=== PATIENT | female | born 1950 | race Caucasian/White ===

== ENCOUNTER 2024-04-20 22:27 | Emergency (ER) | payer MEDICARE, SELFPAY ==
[2024-04-20 22:34] VITALS: BP 103/66
[2024-04-20 22:54] LABS: % Basophils 0.6 % (0-2); % Eosinophils 2.5 % (0-6); % Immature Granulocytes 0.3 % (0-0.5); % Neutrophils 58.6 % (42.2-75.2); Absolute Basophils 0.1 10^3/uL (0-0.2); Absolute Eosinophils 0.2 10^3/uL (0-0.7); Absolute Lymphocytes 2.4 10^3/uL (1.2-3.4); Absolute Monocytes 0.5 10^3/uL (0.1-0.6); Absolute Neutrophils 4.5 10^3/uL (1.4-6.5); Hematocrit 39.1 % (37.0-47.0); Hemoglobin 12.9 g/dL (12.0-16.0); Mean Corpuscular Hgb 30.4 pg (27.0-31.0); Mean Platelet Volume 8.9 fL (7.4-10.4); Nucleated Red Blood Cells % 0 %; Platelet Count 298 10^3/uL (130-400); Red Blood Cell Count 4.25 10^6/uL (4.20-5.40); Red Cell Dist. Width 12.7 % (11.5-14.5); White Blood Cell Count 7.7 10^3/uL (4.8-10.8)
[2024-04-20 23:19] LABS: Troponin I < 0.012 ng/ml
[2024-04-20 23:24] LABS: ALT (SGPT) 18 U/L (0-35); AST (SGOT) 21 U/L (14-36); Albumin 4.1 g/dl (3.5-5.0); Alkaline Phosphatase 75 U/L (38-126); Blood Urea Nitrogen 33 mg/dl (7-17); Calcium 9.7 mg/dl (8.4-10.2); Carbon Dioxide 23 mmol/L (22-30); Chloride 107 mmol/L (98-107); Glucose 104 mg/dl (70-99); Potassium 4.7 mmol/L (3.5-5.1); Sodium 138 mmol/L (135-145); Total Bilirubin 0.3 mg/dl (0.2-1.3); Total Protein 6.7 g/dl (6.3-8.2); eGFR 59.86
--- NOTE | 2024-04-21 01:06 | ED.GENMED ---
History of Present Illness
General
Chief Complaint: Chest Pain
Time Seen by Provider: 04/21/24 01:05
Travel History
Have you had any contact with someone who has COVID-19?: No
Do you have any symptoms of coronavirus? Fever > 100 degrees, chills, cough, shortness of breath, sore throat, loss of taste or smell, muscle aches, or headache?: No
History of Present Illness
History of Present Illness:
HPI: Patient presents with chest discomfort and shortness of breath over the past 2 weeks. This feels similar to the time that she had SCAD last year. She forgot to take her aspirin this past month. She called Dr. Brannon's office who encouraged
her to come in here for further evaluation.
EXAM:
GENERAL: Well appearing in no distress, although she describes chest discomfort and shortness of breath she appears very comfortable in no distress
HEENT: Moist oral mucosa
CARDIOVASCULAR: No murmurs, normal heart rate, regular rhythm, No chest wall tenderness
PULMONARY: No respiratory distress, breath sounds are clear and equal
ABDOMEN: Soft with no peritoneal signs, no tenderness
NEUROLOGIC: Excellent strength all extremities, no coordination deficits
PSYCHIATRIC: Appropriate mental status, normal insight and judgement
EXTREMITIES: Nontender, trace if any lower extremity edema, moves all extremities equally
SKIN: No rash, no lesions
TIME OF INITIAL ENCOUNTER: 12:30 AM
NUMBER AND COMPLEXITY OF PROBLEMS ADDRESSED AT THE ENCOUNTER
� Chronic conditions affecting care: COPD, CAD, high blood pressure, hyperlipidemia, scad, prediabetes
� Acute Exacerbation and/or Progression of Chronic Illness: This is an acute problem but had similar discomfort in the past
� Differential Diagnosis includes: Noncardiac chest pain, non-STEMI, STEMI is ruled out,
AMOUNT AND/OR COMPLEXITY OF DATA TO BE REVIEWED AND ANALYZED
� I performed an independent evaluation of and my interpretation is:
EKG: Sinus 85, normal axis, no acute ST abnormality
CT:
X-rays: Chest x-ray negative
Laboratory Studies: CBC normal, chemistries unremarkable, troponin less than 0.012
Other:
� Review of other/old records: I reviewed records, the patient was here with a non-STEMI in March of last year�scad managed medically/single antiplatelet therapy (aspirin)
� Clinical information was obtained by an independent historian: None needed
� Prescriptions/Medications Considered but not given:
� Further testing considered but not performed:
RISK OF COMPLICATIONS AND/OR MORBIDITY OR MORTALITY OF PATIENT MANAGEMENT
� Social determinants of health affecting care: Lives at home
� Discussion with other providers: Notified Dr. Silveira. He recommends repeat troponin and outpatient management if negative.
� Escalation of care including admission/observation vs risk of discharge considered: The patient has not been taking her antiplatelet medication for the past month. Although patient describes her anginal equivalent, symptoms
have been ongoing for 2 weeks and not worsening. Troponin unremarkable. Second troponin also unchanged. Close outpatient follow-up with [facility].
Past History
Past History
ED Past Medical History: Hypercholesterolemia and NIDDM
ED Past Surgical History: None
Social History
Tobacco: Smoker
Alcohol: None
Living: with family
Family History
Family History: Early CAD
Phy Exam
Physical Exam
Physical Exam:
See HPI
Scores
Heart Score for Chest Pain Patients
STEMI patient?: Not applicable
Course
Orders/Labs/Results
Orders:
Orders
04/20/24 22:29
EKG [Electrocardiogram (*1)] Urgent
Reason for Study: Chest Pain
EKG- Treatment ONCE
04/20/24 22:45
CBC/With Diff [Complete Blood Count/With Diff] Urgent
CMP [Comprehensive Metabolic Panel] Urgent
Troponin I Urgent
04/21/24 00:00
CR Chest - 2 Views Urgent
Reason For Exam: chest pain
04/21/24 01:54
Troponin I Urgent
Abnormal Lab Results
04/20/24
22:45
BUN 33 H mg/dl
(7-17)
Glucose 104 H mg/dl
(70-99)
04/20/24 22:45
04/20/24 22:45
Vital Signs
Initial and Last Documented VS:
Initial Vital Signs
Temp Pulse Resp BP Pulse Ox
97.8 F 91 18 103/66 96
04/20/24 22:34 04/20/24 22:34 04/20/24 22:34 04/20/24 22:34 04/20/24 22:34
Last Documented Vital Signs
Temp Pulse Resp BP Pulse Ox
97.8 F 91 18 103/66 96
04/20/24 22:34 04/20/24 22:34 04/20/24 22:34 04/20/24 22:34 04/20/24 22:34
*Critical Care Note
Total Time (30-74mins, 75-104mins- exclusive of procedures): Not Applicable
ED Attending Note
-
Portions of this chart may have been created with voice recognition software.� Occasional wrong word or��sound alike� substitutions may have occurred due to the inherent limitations of voice recognition software.
Discharge Plan
Departure
Patient Disposition: Home (Routine Discharge)
Date of Disposition: 04/21/24
Time of Disposition: 02:38
Patient with high blood pressure during this ER visit?: No
Discharge Problem:
Chest pain
Instructions: Chest Pain DCA Follow Up
Prescriptions:
No Action
raloxifene 60 mg Tablet
60 mg PO DAILY
rosuvastatin 40 mg Tablet
40 mg PO HS
pramipexole 0.5 mg Tablet
1 mg PO DAILY@1400
aspirin 81 mg tablet,chewable
81 mg PO DAILY
Patient Comments:
Pt never took aspirin
metoprolol succinate 25 mg Tablet Extended Release 24 Hr
25 mg PO BID Qty: 60 0RF
lisinopril 20 mg tablet
20 mg PO DAILY
pramipexole 0.5 mg tablet
0.5 mg PO DAILY@1900
amlodipine 10 mg tablet
20 mg PO DAILY
Referrals:
Varsha Escobar MD [Family Provider] -
Activity Restrictions/Additional Instructions:
EKG and cardiac blood work all troponin are both normal. We see no sign of heart attack. I did discuss with Dr. Silveira�he agrees with close outpatient follow-up. Return here if worse. Somebody from Dr. Silveira's/Dr. Brannon's office should
be contacting you for follow-up. If you do not hear from them, please call their office for follow-up.
Interventions
Interventions:
*Risk Screen - Suicide Last Done: 04/20/24 22:34
*General Assessment Last Done: 04/20/24 22:34
*Neglect/Abuse Screening Last Done: 04/20/24 22:34
ED- Fall Risk Assessment Last Done: 04/21/24 01:57
*ED COVID-19 Vaccine History Last Done: 04/21/24 01:57
ED- Cardiac Assessment Last Done: 04/21/24 01:57
Discharge Date and Time
Print Language: LAO
[2024-04-21 01:30] VITALS: BP 104/72
[2024-04-21 02:20] VITALS: BP 108/68
[2024-04-21 02:35] LABS: Troponin I < 0.012 ng/ml
== END 2024-04-21 03:11 | disposition home or self-care (01) ==
LOC: EMR 22:27
PROVIDERS: EMERGENCY PHYSICIAN Emergency Medicine; FAMILY PHYSICIAN Internal Medicine
DX: R07.89 Other chest pain (principal); R06.02 Shortness of breath; E11.9 Type 2 diabetes mellitus without complications; E78.00 Pure hypercholesterolemia, unspecified; F17.200 Nicotine dependence, unspecified, uncomplicated; Z82.49 Family history of ischemic heart disease and other diseases of the circulatory system; Z91.148 Patient's other noncompliance with medication regimen for other reason
CPT/HCPCS: 99283; 71046; 80053; 84484; 85025; 93005

== ENCOUNTER 2024-07-01 00:36 | Emergency (ER) | payer MEDICARE, SELFPAY ==
[2024-07-01 00:53] VITALS: BP 171/67
[2024-07-01 00:58] VITALS: BP 171/67
[2024-07-01 01:28] LABS: % Basophils 0.5 % (0-2); % Eosinophils 2.3 % (0-6); % Immature Granulocytes 0.4 % (0-0.5); % Lymphocytes 23.9 % (20.5-51.1); % Monocytes 7.1 % (1.7-9.3); % Neutrophils 65.8 % (42.2-75.2); Absolute Eosinophils 0.2 10^3/uL (0-0.7); Absolute Monocytes 0.6 10^3/uL (0.1-0.6); Absolute Neutrophils 5.5 10^3/uL (1.4-6.5); Hematocrit 37.1 % (37.0-47.0); Hemoglobin 12.2 g/dL (12.0-16.0); Mean Corp Hgb Conc. 32.9 g/dL (33.0-37.0); Mean Corpuscular Hgb 30.9 pg (27.0-31.0); Mean Corpuscular Volume 93.9 fL (81.0-99.0); Mean Platelet Volume 9.3 fL (7.4-10.4); Nucleated Red Blood Cells % 0 %; Platelet Count 259 10^3/uL (130-400); Red Blood Cell Count 3.95 10^6/uL (4.20-5.40); White Blood Cell Count 8.3 10^3/uL (4.8-10.8)
--- NOTE | 2024-07-01 01:36 | ED.GENMED ---
History of Present Illness
General
Chief Complaint: Chest Pain
Source: patient
Exam Limitations: none
Time Seen by Provider: 07/01/24 01:14
Nursing documentation reviewed up to this point in time: agreed with
History of Present Illness
History of Present Illness:
The patient is a very pleasant 73-year-old female with a past medical history of high blood pressure, hyperlipidemia, and coronary artery disease. Patient reports that she developed chest tightness at around 6 PM last night. She reports that the
pain has been fairly constant but is nearly gone. She reports that she did not eat much and was running around doing errands. Patient reports that she felt lightheaded throughout the day prior to the chest pain starting. Patient reports that
currently she feels better. She denies any pain rating into her back. She denies calf pain. She denies a history of PE and DVT. She denies shortness of breath but states she felt sweaty earlier today.
Past History
Past History
ED Past Medical History: CAD, Hypercholesterolemia and NIDDM
ED Past Surgical History: Other
Social History
Tobacco: Other
Alcohol: Other
Drug: None
Personal:
Living: with family
Employment: Other
Family History
Family History: Early CAD
Review of Systems
Review of Systems
Allergies reviewed?: Yes
All Other Systems: ROS reviewed and negative except as documented in HPI and ROS
Constitutional: Reports no symptoms
EENT: Reports no symptoms
Respiratory: Reports no symptoms
Cardiac: Reports chest pain
ABD/GI: Reports no symptoms
: Reports no symptoms
Musculoskeletal: Reports no symptoms
Skin: Reports no symptoms
Neurological: Reports no symptoms
Endocrine: Reports no symptoms
Hematologic/Lymphatic: Reports no symptoms
Psychiatric: Reports no symptoms
Phy Exam
Physical Exam
Physical Exam:
Physical Exam
General: no apparent distress, not acutely ill, patient appears very well and stable. She is smiling and conversational
Neck: supple. no meningeal signs. normal posterior pharynx
Heart: s1/s2 regular rate and rhythm, equal radial and femoral pulses bilaterally
Lungs: no acute respiratory distress. clear bilaterally
Abdomen: normal bowel sounds. not tender. no CVAT, no pulsatile mass
Neuro: alert and oriented. no focal neurological deficits
Skin: no rash
Psychiatric: well kept. interactive and cooperative
Extremities: Trace edema in bilateral ankles. Negative Homans' sign.
Scores
Heart Score for Chest Pain Patients
STEMI patient?: No
History: Slightly or Non-Suspicious
ECG: Normal
Age: >/= 65 years
Risk Factors: >/= 3 Risk Factors or History of CAD
Troponin: </= Normal Limit
Heart Score for Chest Pain Patients: 4
Heart Score Risk: 20.3% MACE over next 6 weeks
Course
Orders/Labs/Results
Orders:
Orders
07/01/24 00:39
EKG [Electrocardiogram (*1)] Urgent
Reason for Study: Chest Pain
EKG- Treatment ONCE
07/01/24 01:02
Complete Blood Count/With Diff Urgent
Comprehensive Metabolic Panel Urgent
Troponin I Urgent
Abnormal Lab Results
07/01/24
01:02
RBC 3.95 L 10^6/uL
(4.20-5.40)
MCHC 32.9 L g/dL
(33.0-37.0)
Chloride 110 H mmol/L
(98-107)
Carbon Dioxide 21 L mmol/L
(22-30)
BUN 37 H mg/dl
(7-17)
Creatinine 1.1 H mg/dL
(0.6-1.0)
Glucose 117 H mg/dl
(70-99)
07/01/24 01:02
07/01/24 01:02
Vital Signs
Initial and Last Documented VS:
Initial Vital Signs
BP
171/67
07/01/24 00:53
Last Documented Vital Signs
Temp Pulse Resp BP Pulse Ox
97.5 F 87 17 171/67 97
07/01/24 00:58 07/01/24 02:00 07/01/24 02:00 07/01/24 00:58 07/01/24 02:00
MDM/Problems Addressed
Differential Diagnosis Includes:
Acute coronary syndrome, pneumonia, CHF, PE, aortic dissection
MDM/Problems Addressed:
Patient presents with acute chest pain
Chronic conditions affecting care: CAD
Acute Exacerbation and/or Progression of Chronic Illness:
Patient symptoms could represent acute exacerbation of chronic coronary artery disease
Acute Exacerbation and/or Progression of Chronic Illness: CAD
*Pulse Oximetry
Patient hypoxic: no
*EKG
Interpreted by ED Provider?: Yes
Interpretation: normal
Comparison EKG: no comparison EKG present
Rate: normal
Rhythm: sinus
[place]: normal axis
Interval: normal interval
QRS Pattern: normal QRS
Ischemia: no ischemia
*Irrigation Pump Installer Interpretation
Rate: normal
Interpretation: normal
Rhythm: sinus
*Critical Care Note
Total Time (30-74mins, 75-104mins- exclusive of procedures): Not Applicable
Data Reviewed
Review of Other/Old Records Reveals: Operative Reports (Cardiac cath report reviewed from 2022 which showed spontaneous cardiac artery dissection.)
Update Note
Update Note:
Patient has been resting comfortably in the ED. Her troponin is negative. Her EKG does not appear ischemic. It is doubtful she is acute coronary syndrome given that symptoms started at least 6 hours ago. Patient's chest pain is gone. She has
had no scapular pain to suggest aortic dissection. Her lungs are clear and there is no sign of pneumonia or heart failure. Patient told that she must follow-up with cardiology soon as possible. Patient instructed to return immediately with any
recurrence of chest pain, shortness of breath or any other concerns. We did discuss doing a second troponin, however, given patient feels so well and symptoms were several hours ago, decision made to have the patient go home.
ED Attending Note
-
Portions of this chart may have been created with voice recognition software.� Occasional wrong word or��sound alike� substitutions may have occurred due to the inherent limitations of voice recognition software.
Discharge Plan
Departure
Patient Disposition: Home (Routine Discharge)
Date of Disposition: 07/01/24
Time of Disposition: 02:03
Patient with high blood pressure during this ER visit?: Yes
Condition: Good
Covid-19: Not Applicable
Discharge Problem:
Chest pain in adult
Instructions: Chest Pain DCA Follow Up, BLOOD PRESSURE
Prescriptions:
No Action
raloxifene 60 mg Tablet
60 mg PO DAILY
rosuvastatin 40 mg Tablet
40 mg PO HS
pramipexole 0.5 mg Tablet
1 mg PO DAILY@1400
aspirin 81 mg tablet,chewable
81 mg PO DAILY
Patient Comments:
Pt never took aspirin
metoprolol succinate 25 mg Tablet Extended Release 24 Hr
25 mg PO BID Qty: 60 0RF
lisinopril 20 mg tablet
20 mg PO DAILY
pramipexole 0.5 mg tablet
0.5 mg PO DAILY@1900
amlodipine 10 mg tablet
20 mg PO DAILY
Referrals:
Cari Brannon MD [Active] - (Please follow-up within 1 week)
Varsha Escobar MD [Family Provider] -
Activity Restrictions/Additional Instructions:
Make sure you call your janitorial maintenance worker's office by Friday morning if you do not hear from them before then. Is very important that you get seen by your janitorial maintenance worker within 1 week. Please return to the hospital immediately with any persistent or
worsening chest pain.
Interventions
Interventions:
*Risk Screen - Suicide Last Done: 07/01/24 02:06
*General Assessment Last Done: 07/01/24 02:06
*Neglect/Abuse Screening Last Done: 07/01/24 02:06
ED- Fall Risk Assessment Last Done: 07/01/24 02:06
*ED COVID-19 Vaccine History Last Done: 07/01/24 02:06
*Nursing Disposition Last Done: 07/01/24 02:09
ED- Cardiac Assessment Last Done: 07/01/24 01:28
Discharge Date and Time
Discharge Date/Time: 07/01/24 02:09
Print Language: YI
[2024-07-01 01:37] LABS: AST (SGOT) 19 U/L (14-36); Blood Urea Nitrogen 37 mg/dl (7-17); Calcium 9.1 mg/dl (8.4-10.2); Carbon Dioxide 21 mmol/L (22-30); Glucose 117 mg/dl (70-99); Potassium 4.3 mmol/L (3.5-5.1); Total Bilirubin 0.3 mg/dl (0.2-1.3); Total Protein 6.3 g/dl (6.3-8.2); eGFR 53.39
[2024-07-01 01:45] LABS: ALT (SGPT) 17 U/L (0-35); Alkaline Phosphatase 77 U/L (38-126); Chloride 110 mmol/L (98-107); Sodium 139 mmol/L (135-145)
[2024-07-01 01:49] LABS: Troponin I < 0.012 ng/ml
== END 2024-07-01 02:09 | disposition home or self-care (01) ==
LOC: EMR 00:36
PROVIDERS: Emergency Medicine; EMERGENCY PHYSICIAN Emergency Medicine; FAMILY PHYSICIAN Internal Medicine
DX: R07.89 Other chest pain (principal); E78.00 Pure hypercholesterolemia, unspecified; I25.10 Atherosclerotic heart disease of native coronary artery without angina pectoris; E11.9 Type 2 diabetes mellitus without complications; Z82.49 Family history of ischemic heart disease and other diseases of the circulatory system
CPT/HCPCS: 99283; 80053; 84484; 85025; 93005

== ENCOUNTER → 2024-08-11 07:04 | Outpatient (REF) | payer MEDICARE, SELFPAY | LOC: DHCBC/DCA 07:04 | PROVIDERS: ATTENDING PHYSICIAN Internal Medicine Interventional Cardiology; FAMILY PHYSICIAN Internal Medicine | DX: I10 Essential (primary) hypertension (principal); R07.9 Chest pain, unspecified; R06.09 Other forms of dyspnea | CPT/HCPCS: 78452; 93017; A9500 ==

== ENCOUNTER → 2024-08-23 07:03 | Outpatient (REF) | payer MEDICARE, SELFPAY | LOC: HWRCS 07:03 | PROVIDERS: ATTENDING PHYSICIAN Internal Medicine Interventional Cardiology; FAMILY PHYSICIAN Internal Medicine | DX: I10 Essential (primary) hypertension (principal); R07.9 Chest pain, unspecified; R06.09 Other forms of dyspnea | CPT/HCPCS: 93306 ==

== ENCOUNTER → 2024-10-06 08:39 | Outpatient (REF) | payer MEDICARE, SELFPAY | LOC: RAD 08:39 | PROVIDERS: ATTENDING PHYSICIAN Nurse Practitioner Family; FAMILY PHYSICIAN Internal Medicine | DX: Z01.818 Encounter for other preprocedural examination (principal); R05.1 Acute cough | CPT/HCPCS: 71046 ==

== ENCOUNTER → 2024-11-10 12:36 | Outpatient (REF) | payer MEDICARE, SELFPAY | LOC: HWRAD 12:36 | PROVIDERS: ATTENDING PHYSICIAN Internal Medicine Rheumatology; FAMILY PHYSICIAN Internal Medicine | DX: M54.6 Pain in thoracic spine (principal) | CPT/HCPCS: 76604 ==

== ENCOUNTER → 2024-12-30 15:35 | Outpatient (REF) | payer MEDICARE, SELFPAY | LOC: RAD 15:35 | PROVIDERS: ATTENDING PHYSICIAN Internal Medicine | DX: M25.551 Pain in right hip (principal) | CPT/HCPCS: 73502 ==

== ENCOUNTER → 2025-01-10 07:21 | Outpatient (REF) | payer MEDICARE, SELFPAY | LOC: HWRAD 07:21 | PROVIDERS: ATTENDING PHYSICIAN Internal Medicine | DX: E04.1 Nontoxic single thyroid nodule (principal) | CPT/HCPCS: 76536 ==

== ENCOUNTER 2025-06-30 06:45 | Outpatient (RCR) | payer MEDICARE, SELFPAY | END 2025-06-30 23:59 | disposition home or self-care (01) | LOC: RPT 06:45 | PROVIDERS: ATTENDING PHYSICIAN Internal Medicine | DX: M79.18 Myalgia, other site (principal); Z73.6 Limitation of activities due to disability; M54.9 Dorsalgia, unspecified; M62.81 Muscle weakness (generalized) | CPT/HCPCS: 97110; 97161; 97530 ==

== ENCOUNTER 2025-07-15 07:01 | Outpatient (RCR) | payer MEDICARE, SELFPAY | END 2025-07-15 10:58 | disposition home or self-care (01) | LOC: RPT 07:01 | PROVIDERS: ATTENDING PHYSICIAN Internal Medicine | DX: M79.18 Myalgia, other site (principal); Z73.6 Limitation of activities due to disability; M54.50 Low back pain, unspecified; M54.9 Dorsalgia, unspecified; M62.81 Muscle weakness (generalized) | CPT/HCPCS: 97110; 97112 ==

== ENCOUNTER 2025-09-02 03:04 | Observation (INO) | payer MEDICARE, SELFPAY ==
[2025-09-01 23:12] VITALS: BP 163/62
[2025-09-01 23:19] VITALS: BP 148/56
[2025-09-01 23:32] LABS: Hematocrit 37.5 % (37.0-47.0); Hemoglobin 12.0 g/dL (12.0-16.0); Mean Corp Hgb Conc. 32.0 g/dL (33.0-37.0); Mean Corpuscular Volume 93.8 fL (81.0-99.0); Nucleated Red Blood Cells % 0 %; Platelet Count 258 10^3/uL (130-400); Red Cell Dist. Width 13.2 % (11.5-14.5)
[2025-09-01 23:52] VITALS: BP 158/66
[2025-09-02] VITALS (8 sets, daily range): BP systolic 121–153; BP diastolic 53–81; BMI 29.2
[2025-09-02 00:11] LABS: ALT (SGPT) 41 U/L (0-35); AST (SGOT) 29 U/L (14-36); Albumin 3.9 g/dl (3.5-5.0); Alkaline Phosphatase 61 U/L (38-126); Blood Urea Nitrogen 35 mg/dl (7-17); Calcium 9.0 mg/dl (8.4-10.2); Carbon Dioxide 21 mmol/L (22-30); Chloride 111 mmol/L (98-107); Estimated Creatinine Clearance 40 ml/min; Glucose 127 mg/dl (70-99); Potassium 4.2 mmol/L (3.5-5.1); Sodium 139 mmol/L (135-145); Total Protein 6.4 g/dl (6.3-8.2); eGFR 53.06
[2025-09-02 01:07] LABS: Troponin I < 0.012 ng/ml
--- NOTE | 2025-09-02 01:12 | ED.GENMED ---
History of Present Illness
General
Chief Complaint: Chest Pain
Time Seen by Provider: 09/01/25 23:23
History of Present Illness
History of Present Illness:
74-year-old female with history of hypertension, diabetes, history of spontaneous coronary artery dissection in 2022 presenting to the emergency department for chest pain. Patient notes prior to arrival she was leaving the [place] and was walking up
the hill to her car when she had acute onset of substernal chest pain. Symptoms lasted about 30 minutes before they started to subside. By time she had gone home, pain was improving, however then she started to walk from 1 room to the next and
pain returned so she subsequently took a nitroglycerin that she had from a prior cardiac event. After taking the nitroglycerin, felt the pain had improved. Denies shortness of breath. She describes the pain as a tightness and a pain. Denies
abdominal pain. Denies any history of indigestion. Denies additional acute medical complaints.
Past History
Past History
ED Past Medical History: CAD, Hypercholesterolemia and NIDDM
ED Past Surgical History: Other
Social History
Tobacco: Other
Alcohol: Other
Drug: None
Personal:
Living: with family
Employment: Other
Family History
Family History: Early CAD
Phy Exam
Physical Exam
Physical Exam:
General: Well-appearing, no clinical signs of dehydration, nontoxic and in no acute distress
HEENT: protecting airway
Neck: appears supple
CV: Normal heart rate, regular rhythm, no evidence of cyanosis
Resp: No accessory muscle use, no increased work of breathing
Abd: Soft and non-distended, no tenderness to palpation
Extremities: No deformities, no swelling
Neuro: alert, no focal neurologic deficit
: deferred
Rectal: deferred
Psych: Normal affect
Skin: Intact
Scores
Heart Score for Chest Pain Patients
STEMI patient?: No
History: Moderately Suspicious
ECG: Normal
Age: >45 - <65 years
Risk Factors: >/= 3 Risk Factors or History of CAD
Troponin: </= Normal Limit
Heart Score for Chest Pain Patients: 4
Heart Score Risk: 20.3% MACE over next 6 weeks
Course
Orders/Labs/Results
Orders:
Orders
09/01/25 23:10
EKG [Electrocardiogram (*1)] Urgent
Reason for Study: Chest Pain
EKG- Treatment ONCE
09/01/25 23:20
Cardiac Monitoring- Treatment ONCE
09/01/25 23:23
Complete Blood Count/With Diff Urgent
Comprehensive Metabolic Panel Urgent
Troponin I Urgent
09/02/25 01:10
EKG- Treatment ONCE
09/02/25 02:20
Electrocardiogram (*1) Urgent
Reason for Study: Chest Pain
Troponin I Urgent
Abnormal Lab Results
09/01/25
23:23
WBC 4.4 L 10^3/uL
(4.8-10.8)
RBC 4.00 L 10^6/uL
(4.20-5.40)
MCHC 32.0 L g/dL
(33.0-37.0)
Monocytes % 12.2 H %
(1.7-9.3)
Chloride 111 H mmol/L
(98-107)
Carbon Dioxide 21 L mmol/L
(22-30)
BUN 35 H mg/dl
(7-17)
Creatinine 1.1 H mg/dL
(0.6-1.0)
Glucose 127 H mg/dl
(70-99)
ALT 41 H U/L
(0-35)
09/01/25 23:23
09/01/25 23:23
Vital Signs
Initial and Last Documented VS:
Initial Vital Signs
Pulse Resp BP Pulse Ox
83 16 163/62 100
09/01/25 23:12 09/01/25 23:12 09/01/25 23:12 09/01/25 23:12
Last Documented Vital Signs
Pulse Resp BP Pulse Ox
77 16 142/55 96
09/02/25 00:15 09/02/25 00:15 09/02/25 00:00 09/02/25 01:12
MDM/Problems Addressed
MDM/Problems Addressed:
74-year-old female with prior history of spontaneous coronary artery dissection, hypertension, diabetes presenting to the emergency department for acute onset of chest pain. Vital signs on arrival significant for high blood pressure.
On exam, patient resting comfortably, no acute distress. Notes that pain is improved after taking nitro at home, which she has never had to do in the past. Notes that her pain is worse than her prior cardiac event. She did have aspirin prior to
arrival. Patient with concerning story, pain with exertion. EKG however without STEMI criteria. Plan for laboratory analysis including troponin.
01:20 - Troponin is undetectable, however again concerning prior medical history, with coronary risk factors, as well as symptom presentation. For this reason feel patient warrants mission for continued cardiac consultation and troponin trending
*Pulse Oximetry
SaO2: 96
Oxygen Mode of Delivery: Room air
Patient hypoxic: no
*EKG
Interpreted by ED Provider?: Yes
EKG Intrepretation Date: 09/02/25
EKG Intrepretation Time: 01:16
Interpretation: normal
Comparison EKG: no changes (08/11/2024)
Heart Rate: 84
Rate: normal
Rhythm: sinus
[place]: normal axis
Interval: normal interval
QRS Pattern: normal QRS
Ischemia: no ischemia
*Critical Care Note
Total Time (30-74mins, 75-104mins- exclusive of procedures): Not Applicable
ED Attending Note
-
Portions of this chart may have been created with voice recognition software.� Occasional wrong word or��sound alike� substitutions may have occurred due to the inherent limitations of voice recognition software.
Discharge Plan
Departure
Prescriptions:
No Action
raloxifene 60 mg Tablet
60 mg PO DAILY
rosuvastatin 40 mg Tablet
40 mg PO HS
pramipexole 0.5 mg Tablet
1 mg PO DAILY@1400
aspirin 81 mg tablet,chewable
81 mg PO DAILY
Patient Comments:
Pt never took aspirin
metoprolol succinate 25 mg Tablet Extended Release 24 Hr
25 mg PO BID Qty: 60 0RF
lisinopril 20 mg tablet
20 mg PO DAILY
pramipexole 0.5 mg tablet
0.5 mg PO DAILY@1900
amlodipine 10 mg tablet
20 mg PO DAILY
Referrals:
Varsha Escobar MD [Family Provider, Internal Medicine]
Interventions
Interventions:
*Risk Screen - Suicide Last Done: 09/01/25 23:18
*General Assessment Last Done: 09/01/25 23:17
*Neglect/Abuse Screening Last Done: 09/01/25 23:17
*ED- Fall Risk Assessment Last Done: 09/01/25 23:17
*ED COVID-19 Vaccine History Last Done: 09/01/25 23:16
*ED Influenza Vaccine History Last Done: 09/01/25 23:16
ED- Cardiac Assessment Last Done: 09/01/25 23:18
Discharge Date and Time
Print Language: TURKMEN
--- NOTE | 2025-09-02 01:43 | PTCARENOTE ---
patient asking this RN if she can take her night time medications of 25mg Metoprolol, 40 mg Rosuvastatin, and Ambien. Charlotte gave the okay for patient to take her own medications.
--- NOTE | 2025-09-02 02:43 | HPS.HSE ---
Family Physician
-
Family Physician: Varsha Escobar
Chief Complaint
-
Chest Pain
History of Present Illness
Patient is a 74y F with PMH significant for hypertension, DM-II and ASCVD / SCAD who presents to ED complaining of chest pain. Patient states that she was walking to her car this evening around 10:30 PM when she experienced sudden onset of
substernal chest tightness / pain. She states that the pain was the most severe that she has ever had. It was accompanied by shortness of breath and nausea. No emesis or diaphoresis. No radiation of the pain. Patient drove home and the pain
persisted - her called 911 and patient took a NTG tablet. Her pain then began to improve - lasting about 30 minutes in total.
At the time of my examination, patient was sleeping comfortably. She awakened easily and denied any pain or dyspnea.
Patient notes that she has been trying to quit smoking. She stopped for about one month, but started smoking again about 2 weeks ago.
Medical History
Past Medical History
Past Medical History: Reports Other
Additional Past Medical History:
ASCVD / SCAD (2022)
Hypertension
Dyslipidemia
DM-II
GERD
Osteoporosis
MEE not on CPAP
Past Surgical History: Reports Other
Additional Past Surgical History:
Hand Surgery
Foot Surgery
Appendectomy
T&A
Left AMINA
Social History
Tobacco: Smoker (Current every day smoker. 1 ppd with total of > 50 pack years.)
Alcohol: Occasional
Drug: None
Family History
Family History: Other (Sister: COPD)
Allergies / Home Medications
Allergies reflects when Allergies were last updated in [facility].
Home Medications with original date entered in [facility]
Allergy/Medication List:
Allergies
Allergy/AdvReac Type Severity Reaction Status Date / Time
No Known Allergies Allergy Verified 09/01/25 23:29
Home Medications
raloxifene 60 mg tablet 60 mg PO DAILY Osteoporosis 09/18/22
rosuvastatin 40 mg tablet 40 mg PO HS High cholesterol 09/18/22
aspirin 81 mg chewable tablet 81 mg PO DAILY Blood clot prevention/tx 03/27/23
amlodipine 10 mg tablet 10 mg PO DAILY Blood pressure 04/09/23
pramipexole 0.5 mg tablet 0.5 mg PO DAILY@1900 Neurological Condition 04/09/23
empagliflozin 10 mg tablet (Jardiance) 10 mg PO DAILY 09/02/25
lisinopril 40 mg tablet 40 mg PO DAILY 09/02/25
metoprolol succinate 25 mg tablet,extended release 24 hr 25 mg PO DAILY 09/02/25
varenicline tartrate 1 mg tablet 1 mg PO DAILY 09/02/25
Review of Systems
-
History Source: Patient
A 12 point ROS was completed and negative except as noted: Yes
Constitutional: Denies Fever, Fatigue or Chills
Respiratory: Reports Trouble Breathing; Denies Cough
Cardiac: Reports Chest Pain; Denies Diaphoresis, Palpitations or Syncope
Abdomen/GI: Reports Nausea; Denies Abdominal Pain, Vomiting or Diarrhea
: Denies Dysuria or Flank Pain
Musculoskeletal: Denies Joint Pain or Edema
Neurological: Denies Dizzy or Headache
Psych: Denies Depression or Anxiety
Physical Exam
Vital Signs
Vital Signs
Pulse Resp BP Pulse Ox
79 16 121/55 96
09/02/25 01:00 09/02/25 01:00 09/02/25 01:00 09/02/25 01:12
Physical Exam
General: Other (74y F in no acute distress.)
HEENT: Moist mucous membranes and PERRLA
Respiratory: Clear; No Wheezes, Rales or Rhonchi
Cardiac: S1/S2 and Regular Rhythm; No Murmur
GI: Soft, Non Tender, Non Distended and Normal Bowel Sounds
Musculoskeletal: No Clubbing, No Cyanosis and Other
Neuro: AO x 3
Laboratory Results
-
09/01/25 23:23
09/01/25 23:23
Laboratory Results
Total Bilirubin 0.3 mg/dl (0.2-1.3) 09/01/25 23:23
AST 29 U/L (14-36) 09/01/25 23:23
ALT 41 U/L (0-35) H 09/01/25 23:23
Alkaline Phosphatase 61 U/L (38-126) 09/01/25 23:23
Troponin I < 0.012 ng/ml 09/01/25:23
Impression/Plan
-
A/P: Patient is a 74y F with PMH significant for CAD / SCAD, hypertension and DM-II who presents to ED complaining of chest pain.
Chest Pain
ASCVD
- Observe overnight for further evaluation and treatment.
- EKG is unremarkable, initial troponin is undetectable. No pain at present.
- Monitor on tele. Follow for any new / recurrent symptoms.
- Follow serial troponin for any changes.
- Continue ASA, statin, etc.
- Cardiology evaluation for additional recommendations.
Benign Hypertension
- Stable. Continue usual home medication regimen.
DM-II
- Stable. Continue Jardiance.
- Follow glucose and cover with SSI as needed.
- Update A1C.
Tobacco Use Disorder
- Recent relapse despite Chantix therapy.
- Continue to encourage cessation efforts.
RLS
- Stable. Continue Mirapex.
DVT Prophylaxis: Lovenox
Code Status: Full
[2025-09-02 03:33] LABS: Troponin I < 0.012 ng/ml
[2025-09-02 04:34] LABS: Glucose - Point of Care 95 mg/dl (70-99)
[2025-09-02 05:13] LABS: Troponin I < 0.012 ng/ml
--- NOTE | 2025-09-02 05:29 | PTCARENOTE ---
Patient arrived to [facility] from ED. Patient ambulated from stretcher to bed. Patient AAOx3. Patient oriented to room, bed in lowest position, call lennon within reach. Patient instructed to send medications brought in from home back with .
Patient informed on [facility] policy and that RN will administer medications. Patient verbalizes understanding. Will continue to monitor.
[2025-09-02] MEDS: FARXIGA 10 MG PO (08:26)
[2025-09-02] MEDS: ZESTRIL 40 MG PO (08:26)
[2025-09-02] MEDS: TOPROL XL 25 MG PO (08:28)
[2025-09-02] MEDS: LOW STRENGTH ASPIRIN 81 MG PO (08:29)
[2025-09-02] MEDS: NORVASC 10 MG PO (08:29)
[2025-09-02 09:33] LABS: Glucose - Point of Care 107 mg/dl (70-99)
[2025-09-02 10:36] LABS: Hematocrit 38.5 % (37.0-47.0); Hemoglobin 12.5 g/dL (12.0-16.0); Mean Corp Hgb Conc. 32.5 g/dL (33.0-37.0); Mean Corpuscular Volume 93.7 fL (81.0-99.0); Platelet Count 252 10^3/uL (130-400); Red Cell Dist. Width 13.1 % (11.5-14.5)
[2025-09-02 11:06] LABS: Blood Urea Nitrogen 27 mg/dl (7-17); Calcium 9.2 mg/dl (8.4-10.2); Carbon Dioxide 21 mmol/L (22-30); Chloride 116 mmol/L (98-107); Estimated Creatinine Clearance 48 ml/min; Glucose 102 mg/dl (70-99); HDL Cholesterol 55 mg/dl; LDL Cholesterol, Calculated 92 mg/dl; Potassium 4.9 mmol/L (3.5-5.1); Sodium 142 mmol/L (135-145); Very Low Density Lipoprotein 19 mg/dl (0-30); eGFR > 60.00
[2025-09-02 11:10] LABS: Troponin I < 0.012 ng/ml
--- NOTE | 2025-09-02 11:30 | CON.CAR ---
Addendum entered and electronically signed by David Hernandez MD 09/02/25 17:55:
74-year-old woman with history of CAD OM 2 in March 2023 and peak troponin of 1.8, now with severe chest pain September 01 walking to her car, possibly better with nitroglycerin. She has been getting exertional chest discomfort for a year or 2 when
she pushes herself but did not let any physicians know. She has not seen Dr. Brannon recently.
PMH: Hypertension, hyperlipidemia, sleep apnea, tobacco use, family history of premature CAD, noncompliance, diabetes, restless legs
SH: Resumed smoking 2 weeks ago
PMH: Obese Meds: Amlodipine 10 mg a day, aspirin 81 mg a day, Farxiga 10 mg a day, lisinopril 40 mg a day, metoprolol ER 25 mg a day, Mirapex, rosuvastatin 40 mg a day, Lovenox,
141/81, pulse 78, respiratory rate 18, afebrile, head neck exam unremarkable lungs clear, regular rate and rhythm, abdomen benign, extremities without clubbing cyanosis or edema
ECG sinus rhythm, normal ECG, minimal ST segment changes on prior tracing, nonspecific
Hemoglobin 12, white count 4.4, platelets 258, BUN/creatinine 35 and 1.1, potassium 4.2, troponins have been serially undetectable, LDL is pending
Imp:
Admitted with chest pain, No EKG changes, negative troponin
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
cath with nonobstructive CAD and elevated LVEDP 09/18/22
HTN
HLD
MEE, noncompliant with CPAP
ongoing tobacco use
FH of CAD
MODOC
Plan:
See note below. Reviewed in detail and agree, unless otherwise specified
Given her history of CAD, her chest pain last night is of concern, but her troponins have been negative and she had no significant EKG changes. At present she is feeling well.
She has been getting exertional chest discomfort and I wonder if she has evolved obstructive CAD. Alternatively, she could have a recurrence of SCAD though I think this is less likely. Unfortunately also, she has resumed smoking.
Will check echo while here in the hospital and plan on discharge with an out sestamibi study and follow-up to our office. Provided her echo looks unrevealing she can go home later today.
Will need to review whether she has had a CTA of her chest abdomen and pelvis given her history of SCAD. Likelihood of fibromuscular dysplasia of carotids and renal arteries is relatively high.
Counseled regarding smoking cessation.
Would be okay to discharge on the meds that she came in on an admission.
Original Note:
Consultation
Consultation Request
Date/Time Consultation Requested: 09/02/2025
Date/Time Consultation Performed: 09/02/2025
Requesting Provider: Dr. Nguyen
Performing Provider: Maylin Rodriguez PA-C for David Hernandez
Reason for Consultation: Chest pain
Medical History
-
Chief Complaint: CP
History of Present Illness:
Patient is a 74 yo F with PMH of possible scad March 2023, HTN, HLD, MEE, ongoing tobacco use, FH of CAD who presents to [facility] ED 10/02/2025 with chest pain associated with shortness of breath and nausea. Patient reports she was walking to her car
around 10:30 PM on 09/01/2025 when she developed sudden onset of substernal chest tightness/discomfort. She states the pain was most severe pain she ever had. She drove herself home and when pain persisted 911 was called. She took a sublingual
nitroglycerin with improvement of symptoms and pain subsided within 30 minutes. EKG showed sinus rhythm without ischemia. Troponin x 4 undetectable.
At time of this evaluation patient remains chest pain-free. No acute recurrence since admission. She does note chronic dyspnea on exertion which has been ongoing for quite some time. She reports she did have what appears to be pulmonary function
testing yesterday at [place] which she reports did not show COPD.
Prior cardiac history includes cardiac catheterization August 2022 for ongoing chest pain which was negative for occlusive CAD. Severe spasm of R radial artery was noted. She was then hospitalized in March 2023 with chest pain and found to have
spontaneous coronary artery dissection but distal OM 2 with peak troponin of 1.8. She has been medically managed with Toprol, lisinopril. Norvasc and Crestor. She had an echo in August 2024 which showed preserved ejection fraction and no
significant valve disease. Exercise nuclear stress test in August 2024 showed no fixed or reversible defects.
PMH:
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
cath with nonobstructive CAD and elevated LVEDP 09/18/22
HTN
HLD
MEE, noncompliant with CPAP
ongoing tobacco use
FH of CAD
MODOC
Past Medical History
Past Medical History: Other (in HPI)
Social History
Tobacco: Smoker (/ ppd)
Alcohol: None
Personal:
Living: With Family
Employment: Retired
Family History
Family History: CAD (in mother and sister)
Allergies / Home Medications
Allergy/AdvReac Type Severity Reaction Status Date / Time
No Known Allergies Allergy Verified 09/01/25 23:29
�Medication �Instructions �Recorded �Confirmed �Type
raloxifene 60 mg tablet 60 mg PO DAILY Osteoporosis 09/18/22 09/02/25 History
rosuvastatin 40 mg tablet 40 mg PO HS High cholesterol 09/18/22 09/02/25 History
aspirin 81 mg chewable tablet 81 mg PO DAILY Blood clot 03/27/23 09/02/25 History
prevention/tx
amlodipine 10 mg tablet 10 mg PO DAILY Blood pressure 04/09/23 09/02/25 History
pramipexole 0.5 mg tablet 0.5 mg PO DAILY@1900 Neurological 04/09/23 09/02/25 History
Condition
empagliflozin 10 mg tablet 10 mg PO DAILY 09/02/25 09/02/25 History
(Jardiance)
lisinopril 40 mg tablet 40 mg PO DAILY 09/02/25 09/02/25 History
metoprolol succinate 25 mg 25 mg PO DAILY 09/02/25 09/02/25 History
tablet,extended release 24 hr
varenicline tartrate 1 mg tablet 1 mg PO DAILY 09/02/25 09/02/25 History
Review of Systems
-
History Source: Patient
All other systems: Negative unless noted
Physical Exam
Vital Signs
Temp Pulse Resp BP Pulse Ox
98.0 F 66 17 131/53 97
09/02/25 11:00 09/02/25 11:00 09/02/25 11:00 09/02/25 11:00 09/02/25 11:00
GEN: No distress, awake, Ox3
HEENT: supple, anicteric, mmm
LUNGS: CTA, no wheezes/rales
CV: Reg, S1/S2, no murmur, rub or gallop
ABD: soft, BS+, NT/ND
EXT: No edema, clubbing or cyanosis
NEURO: Gross non-focal
SKIN: No rash, warm, dry, pink
Lab Results
09/02/25 10:14
09/02/25 10:14
Troponin I < 0.012 ng/ml 09/02/25 10:14
Impression / Plan
-
Primary care physician: Varsha Escobar
Primary Physical Science Aide: Dr. Brannon
Assessment:
Presentation 09/01/2025 with CP
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
cath with nonobstructive CAD and elevated LVEDP 09/18/22
HTN
HLD
MEE, noncompliant with CPAP
ongoing tobacco use
FH of CAD
MODOC
Echo 08/23/2024: EF 60 to 65%. No regional wall motion abnormality. Mild concentric LVH. Mild AI. Unchanged compared to echo from March 2023
Echo 09/02/2025: Pending
Exercise treadmill stress test 08/11/2024: 7 minutes 38 seconds on Selvin protocol achieving 8.5 METS, 78% predicted max heart rate, EKG [address] depression in anterolateral leads resolved 2 minutes in the recovery. Normal perfusion with no fixed or
reversible defects at slightly submax heart rate. EF 76%
Plan:
-Presented 09/01/2025 and late evening with acute onset of sharp chest pain
-Chest pain chest pain lasted approximately 30 minutes and improved after given sublingual nitroglycerin. No reoccurrence
-EKG x 3 nonischemic, troponins x 5 undetectable.
-Patient has history of spontaneous coronary artery dissection of distal OM 2 in March 2023. She had no other significant coronary disease. She had outpatient stress test in August 2024 which was negative for ischemia.
-Check echocardiogram. If echo stable then can be discharged to home with follow-up with outpatient cardiology office
-Would check stress test as outpatient. Patient had submax heart rate on stress test in August 2024. Could consider Lexiscan nuclear stress test
-Lipids 09/02/2025 TC 166, HDL 55, LDL 92, triglycerides 97. Patient reports she has been missing or skipping some of her rosuvastatin. Encourage patient to be compliant with taking it.
-smoking cessation advised. patient states she has been trying to quit
-she is noncompliant with CPAP. encouraged use
HPI 09/02/2025:
Patient is a 74 yo F with PMH of possible scad March 2023, HTN, HLD, MEE, ongoing tobacco use, FH of CAD who presents to [facility] ED 10/02/2025 with chest pain associated with shortness of breath and nausea. Patient reports she was walking to her car
around 10:30 PM on 09/01/2025 when she developed sudden onset of substernal chest tightness/discomfort. She states the pain was most severe pain she ever had. She drove herself home and when pain persisted 911 was called. She took a sublingual
nitroglycerin with improvement of symptoms and pain subsided within 30 minutes. EKG showed sinus rhythm without ischemia. Troponin x 4 undetectable.
At time of this evaluation patient remains chest pain-free. No acute recurrence since admission. She does note chronic dyspnea on exertion which has been ongoing for quite some time. She reports she did have what appears to be pulmonary function
testing yesterday at [place] which she reports did not show COPD.
Prior cardiac history includes cardiac catheterization August 2022 for ongoing chest pain which was negative for occlusive CAD. Severe spasm of R radial artery was noted. She was then hospitalized in March 2023 with chest pain and found to have
spontaneous coronary artery dissection but distal OM 2 with peak troponin of 1.8. She has been medically managed with Toprol, lisinopril. Norvasc and Crestor. She had an echo in August 2024 which showed preserved ejection fraction and no
significant valve disease. Exercise nuclear stress test in August 2024 showed no fixed or reversible defects.
Data Reviewed
-
EKG: Report Reviewed by me, Discussed with Physician and Discussed with Patient
Labs: Labs Reviewed by me, Discussed with Physician, Discussed with Nurse and Discussed with Patient
Old Records: Reviewed
--- NOTE | 2025-09-02 11:32 | W.PN.UPDATE ---
Update Note
Progress Note Update
Seen and admitted this morning for chest pain.
Remains chest pain-free. She had relief with nitro. She has noticed lately exertional chest tightness.
Chest is clear. She has no respiratory symptoms. Will obtain a plain chest x-ray to make sure no thoracic or lung pathology.
Clinical concern is may be cardiac in nature. Patient known to have CAD. Await cardiology input.
[2025-09-02 11:53] LABS: Glucose - Point of Care 76 mg/dl (70-99)
[2025-09-02 11:58] LABS: Glycohemoglobin (HgbA1c) 5.9 % (4.0-5.6)
[2025-09-02 16:55] LABS: Glucose - Point of Care 124 mg/dl (70-99)
[2025-09-02] MEDS: LOVENOX 40 MG SC (17:20)
--- NOTE | 2025-09-03 07:59 | W.DCSUMMARY ---
Discharge Summary
Discharge Data
Date of Admission: 09/02/25
Date of Discharge: 09/02/25
-
Pending Results: No
Hospital Course
Primary diagnosis:
Chest pain concerning for angina
Secondary diagnosis:
Coronary artery disease
Primary hypertension
Hyperlipidemia
Sleep apnea
Ongoing tobacco use
Hospital course:
Patient with a history of CAD presented with chest pain while walking to her car. Apparently was relieved by nitroglycerin. She has been having exertional chest discomfort for last few months. She was chest pain-free on arrival to the ER and
remained chest pain-free in the hospital. There were no EKG changes. Troponins were negative. Was seen by cardiology who felt her nature of chest pain was concerning and wondered if she has a wall obstructive CAD. Unfortunately she resumed
smoking. Echo was checked which showed normal EF and no significant changes. The plan is to discharge home on same medication and outpatient stress test. She was counseled about tobacco cessation.
Consultants on board:
Cardiology-David Greene
Discharge Plan
-
Patient Disposition: Home (Routine Discharge)
Discharge Diagnosis/Procedures: Chest pain
Condition: Good
Diet: Low Cholesterol
Activity: As tolerated
Driving Restrictions: As prior to admission
Activity Restrictions/Additional Instructions:
If you develop chest pain last >15min or chest pressure or shortness of breath come back to ER
Referrals:
Varsha Escobar MD [Family Provider, Internal Medicine] - in less than 1 week
David Hernandez MD [Active, Cardiology] - in one to two weeks
Prescriptions:
Continued
raloxifene 60 mg Tablet
60 mg PO DAILY
rosuvastatin 40 mg Tablet
40 mg PO HS
aspirin 81 mg tablet,chewable
81 mg PO DAILY
Patient Comments:
Pt never took aspirin
pramipexole 0.5 mg tablet
0.5 mg PO DAILY@1900
amlodipine 10 mg tablet
10 mg PO DAILY
lisinopril 40 mg Tablet
40 mg PO DAILY
varenicline tartrate 1 mg Tablet
1 mg PO DAILY
Jardiance 10 mg Tablet
10 mg PO DAILY
metoprolol succinate 25 mg tablet extended release 24 hr
25 mg PO DAILY
Discharge Orders:
Discharge Patient (As Directed); Ordered 09/02/25
Ordered By: Mau Kendrick
Discharge Date and Time
Discharge Date/Time: 09/02/25 19:23
Print Language: SERBIAN
== END 2025-09-02 19:23 | disposition home or self-care (01) ==
LOC: 3 WEST ACU 03:04
PROVIDERS: Emergency Medicine; ADMITTING PHYSICIAN Hospitalist; ATTENDING PHYSICIAN Internal Medicine; EMERGENCY PHYSICIAN Student in an Organized Health Care Education/Training Program; FAMILY PHYSICIAN Internal Medicine; OTHER PHYSICIAN Internal Medicine Cardiovascular Disease
DX: R07.89 Other chest pain (principal); I10 Essential (primary) hypertension; E11.9 Type 2 diabetes mellitus without complications; E78.00 Pure hypercholesterolemia, unspecified; I25.10 Atherosclerotic heart disease of native coronary artery without angina pectoris; R06.09 Other forms of dyspnea; G25.81 Restless legs syndrome; F17.210 Nicotine dependence, cigarettes, uncomplicated; K21.9 Gastro-esophageal reflux disease without esophagitis; I49.1 Atrial premature depolarization; I08.2 Rheumatic disorders of both aortic and tricuspid valves; I70.0 Atherosclerosis of aorta; M81.0 Age-related osteoporosis without current pathological fracture; G47.33 Obstructive sleep apnea (adult) (pediatric); Z82.49 Family history of ischemic heart disease and other diseases of the circulatory system; Z86.79 Personal history of other diseases of the circulatory system; Z79.82 Long term (current) use of aspirin; Z96.642 Presence of left artificial hip joint; Z82.5 Family history of asthma and other chronic lower respiratory diseases; Z79.810 Long term (current) use of selective estrogen receptor modulators (SERMs); Z79.84 Long term (current) use of oral hypoglycemic drugs; Z91.199 Patient's noncompliance with other medical treatment and regimen due to unspecified reason; Z90.49 Acquired absence of other specified parts of digestive tract; Z79.899 Other long term (current) drug therapy
CPT/HCPCS: 71046; 80048; 80053; 80061; 82962; 83036; 84484; 85025; 85027; 93005; 93306; 99285; 99406; G0378

== ENCOUNTER → 2025-09-08 12:01 | Outpatient (REF) | payer MEDICARE, SELFPAY | LOC: HWRCS 12:01 | PROVIDERS: ATTENDING PHYSICIAN Internal Medicine Cardiovascular Disease; FAMILY PHYSICIAN Internal Medicine | DX: I25.10 Atherosclerotic heart disease of native coronary artery without angina pectoris (principal); I77.9 Disorder of arteries and arterioles, unspecified; R07.9 Chest pain, unspecified | CPT/HCPCS: 78452; 93017; A9500 ==

== ENCOUNTER 2025-11-08 10:03 | Inpatient (IN) | payer MEDICARE, SELFPAY ==
[2025-11-08] VITALS (20 sets, daily range): BP systolic 123–182; BP diastolic 44–128; BMI 29.5
[2025-11-08] MEDS: LOW STRENGTH ASPIRIN 81 MG PO (07:30)
[2025-11-08 07:31] LABS: Hematocrit 39.7 % (37.0-47.0); Hemoglobin 13.0 g/dL (12.0-16.0); Mean Corp Hgb Conc. 32.7 g/dL (33.0-37.0); Mean Corpuscular Volume 93.6 fL (81.0-99.0); Platelet Count 278 10^3/uL (130-400); Red Cell Dist. Width 12.3 % (11.5-14.5)
[2025-11-08 07:44] LABS: Blood Urea Nitrogen 33 mg/dl (7-17); Calcium 9.2 mg/dl (8.4-10.2); Carbon Dioxide 21 mmol/L (22-30); Chloride 112 mmol/L (98-107); Estimated Creatinine Clearance 47 ml/min; Glucose 109 mg/dl (70-99); Potassium 4.7 mmol/L (3.5-5.1); Sodium 140 mmol/L (135-145); eGFR > 60.00
--- NOTE | 2025-11-08 07:49 | ITS.CL.CATH ---
Tool Coordinator - Catheterization
Cardiac Catheterization
Procedure Report:
LEFT AND RIGHT HEART CATHETERIZATION
Date of Procedure: November 08, 2025
Referring: Cari Brannon MD, [facility], [facility]
PROCEDURES:
1. Left heart catheterization, coronary angiogram.
2. Moderate sedation.
3. Right heart catheterization.
4. Intravascular ultrasound of ostial left main.
INDICATION: Ongoing dyspnea on exertion and exertional chest pain
ACCESS: Right radial artery, 6Fr. sheath, under US guidance.
HEMODYNAMICS : (mmHg)
RA (m) : 16
RV (s/d,m) : 42/13, 18
PA (s/d, m) : 41/24, 29
PCWP (m) : 25
PA saturation: 69.6% on room air
AO saturation: 96.0% on room air
RA saturation: 68.5% on room air
Cardiac Output : 3.5 L/min
Cardiac Index : 2.1 L/min/m-2
Systemic vascular resistance: 1950 dsc^(-5)
Pulmonary vascular resistance: 2.84 maciel unit
AO (s/d) : 163/72
LVEDP : 25
No significant gradient across the aortic valve to suggest aortic stenosis.
CORONARY FINDINGS
Dominance: Right
Left Main Trunk (LMT): Large caliber vessel that gives rise to the LAD and LCx branches and is free of angiographic disease. There is mild diffuse atherosclerotic plaque. Despite manipulation to different positioning, we had persistent pressure
dampening and ventricularization upon engagement with a 6 [place] JL 4 diagnostic catheter therefore intravascular ultrasound was performed as noted below which was negative. Ostial left main has 10-20% stenosis
Left Anterior Descending Artery (LAD): Large caliber vessel that gives off 2 major diagonal branches as it courses along the anterior inter-ventricular groove before wrapping around the cardiac apex. There is mild diffuse atherosclerotic plaque.
Left Circumflex Artery (LCx): Large caliber vessel that gives off 2 major obtuse marginal (OM) branches as it courses along the atrio-ventricular (AV) groove. Ostial OM1 is a medium caliber vessel with 50 to 60% stenosis. Just distal to this the
circumflex continuation also has a 50 to 60% stenosis. There is mild diffuse atherosclerotic plaque.
Right Coronary Artery (RCA): Large caliber dominant vessel that gives rise to the posterior descending artery (RPDA) and postero-lateral ventricular (RPLV) branches distally. Ostial RCA has heavily calcified 80% stenosis with significant pressure
dampening and ventricularization with engagement with a 6 [place] diagnostic catheter.
Intravascular ultrasound of ostial left main: Given pressure dampening and ventricularization upon engagement with a 6 [place] JL 4 diagnostic catheter despite manipulation into different positions, we decided to proceed with intravascular ultrasound
using an [place] eye IVUS catheter of the ostial left main to rule out obstructive CAD. A 6 [place] JL 3.5 guide was utilized and additional heparin was given to maintain a therapeutic ACT. A 190 cm 0.014' run-through wire was carefully navigated
through the ostial left main into the distal LAD and IVUS was performed. Intravascular ultrasound showed an MLA more than 6 mm2 (~9-10mm2) at the ostial left main not consistent with obstructive CAD.
SEDATION: 37 minutes of procedural sedation was utilized. IV Midazolam and IV Fentanyl were administered. An independent certified medical technician was present to assist with and help manage the patient's level of consciousness and physiologic status.
RADIATION SUMMARY: Fluoro Time (min): 5.5, Dose (mGy): 214.91, DAP (Gy.cm2) : 14.7
Closure Device: There were no immediate intra-procedural complications. The sheath was pulled in the label press operator and a vascular-band applied to the right wrist for radial artery hemostasis using the patent hemostasis technique.
CONCLUSIONS
1. Significantly elevated right left-sided filling pressures with borderline low cardiac output.
2. Heavily calcified 80% ostial RCA stenosis with significant pressure dampening and ventricularization upon engagement with a 5 [place] diagnostic catheter.
3. Intravascular ultrasound showed an MLA more than 6 mm2 (~9-10mm2) at the ostial left main not consistent with obstructive CAD.
RECOMMENDATIONS
1. Wean radial band per protocol. Monitor right hand perfusion and for bleeding from the radial site following removal of the vascular-band following trans-radial access.
2. Continue aggressive medical therapy and risk factor modification for secondary CAD prevention.
3. Aggressive IV diuresis and optimization of underlying medications with plan for staged PCI with shockwave to ostial RCA in the next 24 to 48 hours depending on her response to diuretics.
4. Plan to load with 600 mg of clopidogrel while continuing daily aspirin.
Cari Brannon MD, FACC, [facility]
[2025-11-08 08:44] LABS: ACT-LR - POC 210 Seconds (116-155)
[2025-11-08 08:52] LABS: ACT-LR - POC 239 Seconds (116-155)
[2025-11-08] MEDS: ZESTRIL 40 MG PO (10:44)
[2025-11-08] MEDS: PLAVIX 600 MG PO (10:44)
--- NOTE | 2025-11-08 13:35 | TRANSFER ---
Pt transfered to IVU bed #[id number]
--- NOTE | 2025-11-08 15:02 | CM ---
Chart reviewed. Patient is independent of ADLS, lives with her in a 2 [address], 2 OSWALDO, 0 DME. Plan is for the patient to return home. CM to follow
[2025-11-08] MEDS: MIRAPEX, GENERIC 1 MG PO (15:15)
--- NOTE | 2025-11-08 18:40 | PTCARENOTE ---
Rec'd Pt A,A+Ox3 from the quality assurance qa lab analyst, R radial and brachial dsgs D+I, Pt denies pain, VSS.
[2025-11-08] MEDS: MIRAPEX, GENERIC 0.5 MG PO (19:14)
[2025-11-08] MEDS: TOPROL XL 25 MG PO (22:21)
[2025-11-08] MEDS: CRESTOR 40 MG PO (22:21)
[2025-11-08] MEDS: ZETIA 10 MG PO (22:21)
--- NOTE | 2025-11-08 22:40 | PTCARENOTE ---
Received patient at change of shift. SR on the monitor, HR in the 70s. R radial and R brachial dressings CDI, no evidence of hematoma. No complaints from pt at this time, call lennon within reach.
[2025-11-09] VITALS (7 sets, daily range): BP systolic 116–152; BP diastolic 43–66
[2025-11-09 04:24] LABS: Hematocrit 39.9 % (37.0-47.0); Hemoglobin 13.3 g/dL (12.0-16.0); Mean Corp Hgb Conc. 33.3 g/dL (33.0-37.0); Mean Corpuscular Volume 92.4 fL (81.0-99.0); Platelet Count 291 10^3/uL (130-400); Red Cell Dist. Width 12.5 % (11.5-14.5)
[2025-11-09 04:45] LABS: Blood Urea Nitrogen 35 mg/dl (7-17); Calcium 9.1 mg/dl (8.4-10.2); Carbon Dioxide 22 mmol/L (22-30); Chloride 111 mmol/L (98-107); Estimated Creatinine Clearance 43 ml/min; Glucose 114 mg/dl (70-99); HDL Cholesterol 61 mg/dl; LDL Cholesterol, Calculated 84 mg/dl; Potassium 4.7 mmol/L (3.5-5.1); Sodium 139 mmol/L (135-145); Very Low Density Lipoprotein 21 mg/dl (0-30); eGFR 59.12
[2025-11-09 07:19] LABS: Glycohemoglobin (HgbA1c) 6.4 % (4.0-5.9)
[2025-11-09] MEDS: LOW STRENGTH ASPIRIN 81 MG PO (08:26)
[2025-11-09] MEDS: EVISTA 60 MG PO (08:26)
[2025-11-09] MEDS: PLAVIX 75 MG PO (08:27)
[2025-11-09] MEDS: ZESTRIL 40 MG PO (08:27)
[2025-11-09] MEDS: LASIX 20 MG IV ×2 (08:39→08:40)
--- NOTE | 2025-11-09 09:04 | W.PN.CARDCBS ---
Addendum entered and electronically signed by Cari Brannon MD 11/09/25 14:47:
I saw and examined the patient.
The Election Watcher's note was reviewed and I agree with the note.
Comment: Patient is doing well. Her shortness of breath has improved somewhat but not completely. No chest discomfort while in the hospital
Vital signs and lab work reviewed. Creatinine is stable. On exam patient is well-appearing, no acute distress, awake, alert and oriented x 3, regular rate, normal S1 and S2, elevated JVP, very fine bibasilar Rales, abdomen is obese, soft,
nontender, nondistended with active bowel sounds, warm extremities without significant edema, right radial access site without issues, no evidence of hematoma or bruit.
Recommendations:
1. Plan for continued IV diuresis today with a close monitoring on daily upright weights, ins and outs, electrolyte repletion as needed and renal function.
2. For her heart failure with preserved ejection fraction she remains on Jardiance as well.
3. Plan for n.p.o. after midnight tonight and PCI of ostial RCA with likely shockwave given significant calcium. She was loaded with Plavix yesterday with plan to continue daily baby aspirin and Plavix along with high intensity statin with LDL
goal less than 55.
4. Aggressive management of secondary cardiovascular risk factors and close monitoring of blood counts. No issues at the right radial access site.
Cari Brannon MD, [facility], [facility]
Original Note:
Today's Communication / Plan
-
CAD plan for PCI/shockwave RCA on with anesthesia
continue IV diuresis today
DAPT
Impression / Plan
-
PCP: Varsha Escobar MD
CDY: Cari Hudson MD
Impression:
Dyspnea/chest pain
CAD by cath 11/08/25, calcified ostial RCA
Acute on chronic HFpEF
HTN
Hyperlipidemia
DM2
MEE
RLS
tobacco abuse
Family hx CAD
Plan:
post cath with CAD/calcified RCA, LM IVUS non obstructive
denies cp but having orthopnea and dyspnea on exertion
Rad site stable
elevated PCWP 26, continue IV diuresis Lasix 40 iv now
daily wts, strict I&O
Plan to bring back for shockwave/PCI ostial RCA with anesthesia support
DAPT ASA/Plavix
continue metoprolol xl 25mg
LDL 84 continue rosuvastatin 40mg and Zetia 10mg, goal LDL <55, may need to discuss [id number] as outpt
DM holding Jardiance until after next procedure, A1c 6.4%, SSI as needed
stopped smoking 1 mo ago, continue varenicline, reinforced continued cessation
Activity restrictions reviewed
Cardiac rehab c/s after PCI
f/u DCA 2-4 weeks at d/c
11/08/25 [facility]:
1. Significantly elevated right left-sided filling pressures with borderline low cardiac output.
2. Heavily calcified 80% ostial RCA stenosis with significant pressure dampening and ventricularization upon engagement with a 5 [place] diagnostic catheter.
3. Intravascular ultrasound showed an MLA more than 6 mm2 (~9-10mm2) at the ostial left main not consistent with obstructive CAD.
Progress Note - Client Delivery Manager
Subjective
Date of Service: November 09, 2025
denies cp, dyspnea with exertion and orthopnea overnight
Objective
Labs:
11/09/25 04:02
11/09/25 04:02
Labs
Hgb 13.3 g/dL (12.0-16.0) 11/09/25 04:02
Hct 39.9 % (37.0-47.0) 11/09/25 04:02
Plt Count 291 10^3/uL (130-400) 11/09/25 04:02
PT Cancelled 11/08/25 06:00
INR Cancelled 11/08/25 06:00
APTT Cancelled 11/08/25 06:00
Sodium 139 mmol/L (135-145) 11/09/25 04:02
Potassium 4.7 mmol/L (3.5-5.1) 11/09/25 04:02
BUN 35 mg/dl (7-17) H 11/09/25 04:02
Creatinine 1.0 mg/dL (0.6-1.0) 11/09/25 04:02
Glucose 114 mg/dl (70-99) H 11/09/25 04:02
Vital Signs and I&O:
Vital Signs
Temp Pulse Resp BP Pulse Ox
97.6 F 81 17 139/50 96
11/09/25 08:30 11/09/25 07:30 11/09/25 08:30 11/09/25 07:21 11/09/25 08:30
Vital Signs
Temp Pulse Resp BP Pulse Ox
97.6 F 81 17 139/50 96
11/09/25 08:30 11/09/25 07:30 11/09/25 08:30 11/09/25 07:21 11/09/25 08:30
Physical Exam
Physical Exam
NAD, AOx3, HAVASUPAI
S1, S2, RRR, no murmurs
fine crackles bibasilar, no wheeze
SNTND Bsx4
R rad site c/d/i no HT, good pulse
trace b/l LE edema
--- NOTE | 2025-11-09 10:19 | PTCARENOTE ---
Assumed care of the pt @ 0700. Pt is AAOx3 SR on the monitor denies cp or sob. PIV left arm painful to flush was removed and new piv placed in left ac. Rt radial and brachial cath sites ecchymotic dressing c/d/i. Pt ambulating in room call lennon
within reach.
--- NOTE | 2025-11-09 11:02 | CM ---
Chart reviewed. Patient going for a staged PCI tomorrow. Patient is independent of ADLS, lives with her in a 2 [address], 2 [place]WALDO, 0 DME. Plan is for the patient to return home. CM to follow
[2025-11-09 13:05] LABS: Glucose - Point of Care 108 mg/dl (70-99)
[2025-11-09] MEDS: MIRAPEX, GENERIC 1 MG PO (14:10)
[2025-11-09] MEDS: LOVENOX 40 MG SC (16:34)
[2025-11-09] MEDS: MIRAPEX, GENERIC 0.5 MG PO (16:34)
[2025-11-09 17:28] LABS: Glucose - Point of Care 116 mg/dl (70-99)
--- NOTE | 2025-11-09 21:00 | PTCARENOTE ---
Assumed care of patient at change of shift. AAOx3, VSS, Sinus rhythmn on tele. 96% on Room air. Right radial and Right Brachial dressing c/d/i. Patient denies complaints, plan of care discussed and call lennon within reach.
[2025-11-09] MEDS: CRESTOR 40 MG PO (22:05)
[2025-11-09] MEDS: TOPROL XL 25 MG PO (22:06)
[2025-11-09] MEDS: ZETIA 10 MG PO (22:06)
[2025-11-09 22:13] LABS: Glucose - Point of Care 94 mg/dl (70-99)
[2025-11-10] VITALS (18 sets, daily range): BP systolic 85–143; BP diastolic 36–89; BMI 28.8
[2025-11-10 04:04] LABS: Hematocrit 38.8 % (37.0-47.0); Hemoglobin 13.2 g/dL (12.0-16.0); Mean Corp Hgb Conc. 34.0 g/dL (33.0-37.0); Mean Corpuscular Volume 90.2 fL (81.0-99.0); Platelet Count 271 10^3/uL (130-400); Red Cell Dist. Width 12.5 % (11.5-14.5)
[2025-11-10 04:31] LABS: Blood Urea Nitrogen 35 mg/dl (7-17); Calcium 9.2 mg/dl (8.4-10.2); Carbon Dioxide 19 mmol/L (22-30); Chloride 108 mmol/L (98-107); Estimated Creatinine Clearance 42 ml/min; Glucose 105 mg/dl (70-99); Magnesium 2.1 mg/dl (1.6-2.3); Potassium 4.4 mmol/L (3.5-5.1); Sodium 137 mmol/L (135-145); eGFR 59.12
[2025-11-10 06:10] LABS: Glucose - Point of Care 106 mg/dl (70-99)
[2025-11-10] MEDS: EVISTA 60 MG PO (08:25)
[2025-11-10] MEDS: ZESTRIL 40 MG PO (08:25)
[2025-11-10] MEDS: LOW STRENGTH ASPIRIN 81 MG PO (08:25)
[2025-11-10] MEDS: PLAVIX 75 MG PO (08:25)
--- NOTE | 2025-11-10 10:27 | PTCARENOTE ---
Assumed care of the pt @ 0700. Pt is AAOx3 SR on the monitor VSS denies cp. NPO since sd for cath today. Report given to Yogesh in CCL @ 8691. POC discussed with pt. Giselle lennon within reach. Pt was transferred to [facility] @ 1240.
[2025-11-10 11:08] LABS: ACT-LR - POC 237 Seconds (116-155)
--- NOTE | 2025-11-10 11:09 | CM ---
Chart reviewed. Patient in the lab pack chemist going for a staged PCI. Patient is independent of ADLS, lives with her in a 2 [address], 2 [place]WALDO, 0 DME. Plan is for the patient to return home. CM to follow
[2025-11-10 11:21] LABS: ACT-LR - POC 287 Seconds (116-155)
[2025-11-10 11:33] LABS: ACT-LR - POC 332 Seconds (116-155)
[2025-11-10 11:50] LABS: ACT-LR - POC 302 Seconds (116-155)
[2025-11-10 12:53] LABS: Glucose - Point of Care 128 mg/dl (70-99)
[2025-11-10] MEDS: NSS 1000 IV (13:47)
--- NOTE | 2025-11-10 13:53 | PTCARENOTE ---
Pt retuned from CCL with rt radial TR band in place. SB/SR on the monitor pt is sleepy but wakes easily. Pt instructed on activity restriction.
[2025-11-10] MEDS: MIRAPEX, GENERIC 1 MG PO (15:27)
[2025-11-10 16:42] LABS: Glucose - Point of Care 120 mg/dl (70-99)
--- NOTE | 2025-11-10 18:26 | ITS.CL.CATH ---
[facility] - Catheterization
Cardiac Catheterization
Procedure Report:
LEFT HEART CATHETERIZATION AND CORONARY INTERVENTION
Date of Procedure: November 10, 2025
Referring: Cari Brannon MD, [facility], [facility]
PROCEDURES:
1. Left heart catheterization, coronary angiogram.
2. Moderate sedation.
3. Successful percutaneous coronary artery intervention of heavily calcified 80% ostial RCA stenosis, status post IVL shockwave with 3.0 mm shockwave balloon, subsequently stented with a 2.75 x 15 mm Medtronic [place] frontier drug-eluting stent,
postdilated using a 2.75 x 15 mm NC balloon at high pressures with an excellent angiographic and IVUS based result.
4. IVL shockwave.
5. Intravascular ultrasound (IVUS).
INDICATION: Given significantly elevated filling pressures a couple days ago with borderline cardiac output after diagnostic heart catheterization she was aggressively diuresed and brought back to the heart catheterization lab for staged PCI and
repeat left heart catheterization to assess LVEDP to make sure she was adequately diuresed and help guide further diuretic therapy given ongoing dyspnea on exertion in the setting of acute on chronic heart failure with preserved ejection fraction.
ACCESS: Right radial artery, 6Fr. sheath, under US guidance.
HEMODYNAMICS : (mmHg)
AO (s/d) : 112/49
LVEDP : 14
No significant gradient across the aortic valve to suggest aortic stenosis.
CORONARY FINDINGS
Dominance: Right
Right Coronary Artery (RCA): Large caliber dominant vessel that gives rise to the posterior descending artery (RPDA) and postero-lateral ventricular (RPLV) branches distally. Ostial RCA has heavily calcified 80% stenosis which was intervened upon
as noted below.
CORONARY INTERVENTION:
SEDATION: 37 minutes of procedural sedation was utilized. IV Midazolam and IV Fentanyl were administered. An independent medical collections specialist was present to assist with and help manage the patient's level of consciousness and physiologic status.
RADIATION SUMMARY: Fluoro Time (min): 11.5, Dose (mGy): 347.2, DAP (Gy.cm2) : 29.7
Closure Device: There were no immediate intra-procedural complications. The sheath was pulled in the laborer cheesemaking and a vascular-band applied to the right wrist for radial artery hemostasis using the patent hemostasis technique.
CONCLUSIONS
1. Successful percutaneous coronary artery intervention of heavily calcified 80% ostial RCA stenosis, status post IVL shockwave with 3.0 mm shockwave balloon, subsequently stented with a 2.75 x 15 mm Medtronic [place] frontier drug-eluting stent,
postdilated using a 2.75 x 15 mm NC balloon at high pressures with an excellent angiographic and IVUS based result.
2. LVEDP 14mmHG
RECOMMENDATIONS
1. Wean radial band per protocol. Monitor right hand perfusion and for bleeding from the radial site following removal of the vascular-band following trans-radial access.
2. Continue aggressive medical therapy and risk factor modification for secondary CAD prevention. SGLT2 for heart failure with preserved ejection fraction.
3. Continue ASA 81 mg daily for life.
4. Continue plavix for at least 12 months of uninterrupted dual anti-platelet therapy given drug-eluting stent (MARIANNE) implantation to mitigate the risk of stent thrombosis. This is not to be stopped for any reason without the guidance of a
criminal intelligence specialist.
5. Hydrate with normal saline to mitigate the risk of contrast-induced acute kidney injury.
6. Referral for outpatient cardiac rehab.
7. Follow-up with Dr. Brannon
Cari Brannon MD, [facility], [facility]
[2025-11-10] MEDS: LOVENOX 40 MG SC (18:32)
[2025-11-10] MEDS: MIRAPEX, GENERIC 0.5 MG PO (18:32)
[2025-11-10] MEDS: MIRALAX 17 GRAMS PO (21:33)
[2025-11-10] MEDS: CRESTOR 40 MG PO (21:33)
[2025-11-10] MEDS: ZETIA 10 MG PO (21:33)
[2025-11-10] MEDS: TOPROL XL 25 MG PO (21:33)
[2025-11-10 21:51] LABS: Glucose - Point of Care 127 mg/dl (70-99)
[2025-11-11] MEDS: MELATONIN 3 MG PO (02:19)
[2025-11-11 02:24] VITALS: BP 128/49
[2025-11-11 02:51] LABS: Hematocrit 37.2 % (37.0-47.0); Hemoglobin 12.3 g/dL (12.0-16.0); Mean Corp Hgb Conc. 33.1 g/dL (33.0-37.0); Mean Corpuscular Volume 91.0 fL (81.0-99.0); Platelet Count 260 10^3/uL (130-400); Red Cell Dist. Width 12.4 % (11.5-14.5)
[2025-11-11 03:13] LABS: Blood Urea Nitrogen 44 mg/dl (7-17); Calcium 9.2 mg/dl (8.4-10.2); Carbon Dioxide 23 mmol/L (22-30); Chloride 108 mmol/L (98-107); Estimated Creatinine Clearance 35 ml/min; Glucose 98 mg/dl (70-99); Potassium 4.9 mmol/L (3.5-5.1); Sodium 137 mmol/L (135-145); eGFR 47.50
--- NOTE | 2025-11-11 04:31 | PTCARENOTE ---
Pt NST on monitor, VSS. Denies any pain or discomfort, VILLARREAL. Rt upper ext post cath with ecchymosis, soft. Pt independent in the room. Call lennon within reach
[2025-11-11 04:40] VITALS: BMI 29.1
[2025-11-11 07:05] VITALS: BP 123/52
[2025-11-11 07:46] LABS: Glucose - Point of Care 112 mg/dl (70-99)
[2025-11-11] MEDS: EVISTA 60 MG PO (08:42)
[2025-11-11] MEDS: PLAVIX 75 MG PO (08:42)
[2025-11-11] MEDS: LOW STRENGTH ASPIRIN 81 MG PO (08:42)
--- NOTE | 2025-11-11 09:09 | W.PN.CARDCBS ---
Addendum entered and electronically signed by Cari Brannon MD 11/11/25 22:52:
I saw and examined the patient.
The Prescription Eyeglass Maker's note was reviewed and I agree with the note.
Comment: Patient is doing well. Her shortness of breath has improved somewhat but not completely, still reports orthopnea. No chest discomfort any further with ambulation. s/p RCA ostial PCI with shockwave.
Vital signs and lab work reviewed. Creatinine is up to 1.2. On exam patient is well-appearing, no acute distress, awake, alert and oriented x 3, regular rate, normal S1 and S2, elevated JVP, very fine bibasilar Rales, abdomen is obese, soft,
nontender, nondistended with active bowel sounds, warm extremities without significant edema, right radial access site without issues, no evidence of hematoma or bruit.
Recommendations:
1. Holding lisinorpil and lasix toay, Was hypotensive yesterday at times with sedaiton, ? CHUCHO Plan to resume lower dose lisinorpil tomorrow and lasix with repeat BMP on Friday.
2. For her heart failure with preserved ejection fraction she remains on Jardiance as well.
3. continue daily baby aspirin and Plavix along with high intensity statin with LDL goal less than 55.
4. Aggressive management of secondary cardiovascular risk factors and close monitoring of blood counts. No issues at the right radial access site.
Stable for DC home with close outpt follow up.
Cari Brannon MD, [facility], [facility]
Total time spent: 32mins
Original Note:
Today's Communication / Plan
-
post shockwave and PCI
DAPT, BB, Statin
cardiac rehab c/s
Cr bumped 1.2, will hold Lasix and lisinopril today, resume tomorrow
Check BMP in 1 week
Impression / Plan
-
PCP: Varsha Escobar MD
CDY: Cari Hudson MD
Impression:
Dyspnea/chest pain
CAD with SCAD OM 2022
Cath 11/08/25, calcified ostial RCA
s/p lithotripsy and PCI ostial RCA 11/10/25
Acute on chronic HFpEF
HTN
Hyperlipidemia
DM2
MEE
RLS
tobacco abuse
Family hx CAD
Plan:
post shockwave and PCI ostial RCA 11/10/25 with anesthesia support
had hypotension post requiring pressure support, quickly weaned off and bp stable o/n
Cr bumped 1.2 today, possibly d/t iv contrast and hypotension,will recheck BMP in 1 week
denies cp, still with some orthopnea and exertional dyspnea but improved, LVEDP 14 yesterday
Rad/brachial site stable with ecchymosis, good pulse
Will hold lasix and lisinopril today, resume tomorrow
DAPT ASA/Plavix
continue metoprolol xl 25mg
LDL 84 continue rosuvastatin 40mg and Zetia 10mg was just added last week, goal LDL <55
DM holding Jardiance until after next procedure, A1c 6.4%, SSI as needed
stopped smoking 1 mo ago, continue varenicline, reinforced continued cessation
Activity restrictions reviewed
Cardiac rehab c/s
f/u DCA 2-4 weeks at d/c
11/10/25
1. Successful percutaneous coronary artery intervention of heavily calcified 80% ostial RCA stenosis, status post IVL shockwave with 3.0 mm shockwave balloon, subsequently stented with a 2.75 x 15 mm Medtronic [place] frontier drug-eluting stent,
postdilated using a 2.75 x 15 mm NC balloon at high pressures with an excellent angiographic and IVUS based result.
2. LVEDP 14mmHG
11/08/25 LHC:
1. Significantly elevated right left-sided filling pressures with borderline low cardiac output.
2. Heavily calcified 80% ostial RCA stenosis with significant pressure dampening and ventricularization upon engagement with a 5 American diagnostic catheter.
3. Intravascular ultrasound showed an MLA more than 6 mm2 (~9-10mm2) at the ostial left main not consistent with obstructive CAD.
Progress Note - Airline Managerial Supervisor
Subjective
Date of Service: November 11, 2025
denies cp, mild orthopnea and dypnea on exertion
Objective
Labs:
11/11/25 02:29
11/11/25 02:
Labs
Hgb 12.3 g/dL (12.0-16.0) 11/11/25 02:
Hct 37.2 % (37.0-47.0) 11/11/25:
Plt Count 260 10^3/uL (130-400) 11/11/25 02:29
PT Cancelled 11/08/25 06:00
INR Cancelled 11/08/25 06:00
APTT Cancelled 11/08/25 06:00
Sodium 137 mmol/L (135-145) 11/11/25 02:29
Potassium 4.9 mmol/L (3.5-5.1) 11/11/25 02:29
BUN 44 mg/dl (7-17) H 11/11/25 02:29
Creatinine 1.2 mg/dL (0.6-1.0) H 11/11/25 02:29
Glucose 98 mg/dl (70-99) 11/11/25 02:29
Vital Signs and I&O:
Vital Signs
Temp Pulse Resp BP Pulse Ox
97.6 F 67 18 128/49 96
11/11/25 07:03 11/11/25 04:00 11/11/25 07:03 11/11/25 02:24 11/11/25 07:03
Vital Signs
Temp Pulse Resp BP Pulse Ox
97.6 F 67 18 128/49 96
11/11/25 07:03 11/11/25 04:00 11/11/25 07:03 11/11/25 02:24 11/11/25 07:03
Intake & Output
11/09/25 11/10/25 11/11/25 11/12/25
06:59 06:59 06:59 06:59
Intake Total 480 / 480 480 / 480
Output Total 1300 / 1300 400 / 400
Balance -820 / -820 80 / 80
Physical Exam
Physical Exam
NAD, AOX3
S1, s2, RRR
diminised b/l bases, non labored, no wheeze
SNTND bsx4
R rad site c/d/i, good pulse, mild ecchymosis at brachial site as well
[2025-11-11 11:19] VITALS: BP 116/48
[2025-11-11 12:23] LABS: Glucose - Point of Care 97 mg/dl (70-99)
[2025-11-11] MEDS: MIRAPEX, GENERIC 1 MG PO (13:28)
--- NOTE | 2025-11-11 14:55 | W.DS.TRANS ---
DC Summary - Residential Program Worker
-
Discharge Instructions:
Discharge Diagnosis/Procedures Lithotripsy (shockwave) and angioplasty with
stent to RCA
Diet Low Cholesterol,Diabetic, Carb Controlled,Low
Sodium
Driving Restrictions No driving for 24 hours
Blood Work Check BMP on FRIDAY
Other Services Cardiac Rehab
Instructions:
Stand-Alone Forms: DC Instructions- Cath/EP Lab
Changes to Home Medications: Yes
Discharge Medications:
DC Medications w/original date entered in [facility]
raloxifene 60 mg tablet 60 mg PO DAILY Osteoporosis 09/18/22
rosuvastatin 40 mg tablet 40 mg PO HS High cholesterol 09/18/22
aspirin 81 mg chewable tablet 81 mg PO DAILY Blood clot prevention/tx 03/27/23
pramipexole 0.5 mg tablet 0.5 mg PO QPM Neurological Condition 04/09/23
empagliflozin 10 mg tablet (Jardiance) 10 mg PO DAILY Diabetes 09/02/25
metoprolol succinate 25 mg tablet,extended release 24 hr 25 mg PO HS Blood Pressure 09/02/25
varenicline tartrate 1 mg tablet 1 mg PO DAILY Smoking Cessation 09/02/25
ezetimibe 10 mg tablet 10 mg PO HS High Cholesterol 11/08/25
pramipexole 0.5 mg tablet 1 mg PO DAILY@1400 11/08/25
clopidogrel 75 mg tablet 75 mg PO DAILY #90 tabs 11/10/25
furosemide 40 mg tablet (Lasix) 40 mg PO DAILY #90 tabs 11/11/25
lisinopril 40 mg tablet 20 mg (1/2 x 40 mg) PO DAILY Blood Pressure #0 tabs 11/11/25
Home Medication Changes
new to plavix, increased lasix, decreased lisinopril
Pending Results: No
[2025-11-11 15:48] VITALS: BP 133/52
--- NOTE | 2025-11-11 16:13 | PTCARENOTE ---
Pt ambulating in room and halls earlier, candelaria well, no complaints. Discharge instructions reviewed with Pt, she expressed understanding.
== END 2025-11-11 17:03 | disposition home or self-care (01) | DRG 323 ==
LOC: IVU 10:03
PROVIDERS: Nurse Practitioner; Nurse Practitioner Adult Health; ADMITTING PHYSICIAN Internal Medicine Interventional Cardiology; FAMILY PHYSICIAN Internal Medicine
PROC: B240ZZ3 Ultrasonography of Single Coronary Artery, Intravascular (ICD-10-PCS; 2025-11-08)
PROC: 4A023N8 Measurement of Cardiac Sampling and Pressure, Bilateral, Percutaneous Approach (ICD-10-PCS; 2025-11-08)
PROC: B2111ZZ Fluoroscopy of Multiple Coronary Arteries using Low Osmolar Contrast (ICD-10-PCS; 2025-11-08)
PROC: 4A023N7 Measurement of Cardiac Sampling and Pressure, Left Heart, Percutaneous Approach (ICD-10-PCS; 2025-11-10)
PROC: 027034Z Dilation of Coronary Artery, One Artery with Drug-eluting Intraluminal Device, Percutaneous Approach (ICD-10-PCS; 2025-11-10)
PROC: 02F03ZZ Fragmentation in Coronary Artery, One Artery, Percutaneous Approach (ICD-10-PCS; 2025-11-10)
DX: I25.10 Atherosclerotic heart disease of native coronary artery without angina pectoris (principal); I50.33 Acute on chronic diastolic (congestive) heart failure; I11.0 Hypertensive heart disease with heart failure; E78.5 Hyperlipidemia, unspecified; E11.9 Type 2 diabetes mellitus without complications; G47.33 Obstructive sleep apnea (adult) (pediatric); G25.81 Restless legs syndrome; F17.200 Nicotine dependence, unspecified, uncomplicated; I95.81 Postprocedural hypotension; Z79.899 Other long term (current) drug therapy; Z82.49 Family history of ischemic heart disease and other diseases of the circulatory system
CPT/HCPCS: 37215; 80048; 80061; 82962; 83036; 83735; 85027; 85347; 92972; 92978; 93005; 93458; 93460; 99152; 99153; C1725; C1761; C1769; C1874; C1894; C9600; Q9967

== ENCOUNTER → 2025-11-14 14:30 | Outpatient (REF) | payer MEDICARE, SELFPAY | LOC: RAD 14:30 | PROVIDERS: ATTENDING PHYSICIAN Internal Medicine Interventional Cardiology; FAMILY PHYSICIAN Internal Medicine | DX: R58 Hemorrhage, not elsewhere classified (principal); T14.8XXA Other injury of unspecified body region, initial encounter | CPT/HCPCS: 93931 ==